=== PATIENT | male | born 1985 | race Caucasian/White ===

== ENCOUNTER 2020-07-07 10:37 | Emergency (ER) | payer MEDICAID ==
[2020-07-07 10:51] VITALS: BP 146/77; PULSE 77; RESP 18; TEMP 98
--- NOTE | 2020-07-07 11:22 | XR ---
EXAMINATION TYPE: XR shoulder complete RT DATE OF EXAM: 07/07/2020 COMPARISON: NONE HISTORY: Pain TECHNIQUE: Three views are submitted. FINDINGS: The osseous structures are intact. There is no acute fracture or dislocation. The AC joint is maint ained. IMPRESSION: 1. No acute process.
--- NOTE | 2020-07-07 11:32 | ED ---
Upper Extremity HPI - General Chief Complaint: Extremity Injury, Upper Stated Complaint: Hockey Injury/shoulder pain Time Seen by Provider: 07/07/20 10:52 Source: patient, RN notes reviewed Mode of arrival: ambulatory Limitations: no limitations - History of Present Illness Initial Comments: This a 35-year-old male presents emergency Department chief complaint right shoulder pain. 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 Patient has pain today. This happened last night states it hurts to move his right shoulder no other complaints. No shortness of breath. - Related Data Home Medications Medication Instructions Recorded Confirmed Ergocalciferol [Vitamin D2 (1250 1,250 mcg PO ALFREDO 07/07/20 07/07/20 Mcg = 46653 Iu)] Allergies Allergy/AdvReac Type Severity Reaction Status Date / Time No Known Allergies Allergy Verified 07/07/20 11:20 Review of Systems ROS Statement: Those systems with pertinent positive or pertinent negative responses have been documented in the HPI. ROS Other: All systems not noted in ROS Statement are negative. Past Medical History Past Medical History: Asthma Additional Past Medical History / Comment(s): heart murmur, hypotension History of Any Multi-Drug Resistant Organisms: None Reported Past Surgical History: Orthopedic Surgery Additional Past Surgical History / Comment(s): left arm, "pop elbow back in" Past Anesthesia/Blood Transfusion Reactions: No Reported Reaction Past Psychological History: No Psychological Hx Reported Smoking Status: Never smoker Past Alcohol Use History: Occasional Past Drug Use History: Marijuana General Exam Limitations: no limitations General appearance: alert, in no apparent distress Head exam: Present: atraumatic, normocephalic, normal inspection Eye exam: Present: normal appearance, PERRL, EOMI. Absent: scleral icterus, conjunctival injection, periorbital swelling Neck exam: Present: normal inspection, full ROM. Absent: tenderness, mening ismus, lymphadenopathy Respiratory exam: Present: normal lung sounds bilaterally. Absent: respiratory distress, wheezes, rales, rhonchi, stridor Cardiovascular Exam: Present: regular rate, normal rhythm, normal heart sounds. Absent: systolic murmur, diastolic murmur, rubs, gallop, clicks Extremities exam: Present: other (Right shoulder mild tightness, ecchymosis noted) Course Vital Signs 07/07/20 10:47 Temperature 98 F Pulse Rate 77 Respiratory 18 Rate Blood Pressure 146/77 O2 Sat by Pulse 100 Oximetry Medical Decision Making - Medical Decision Making X-ray was reviewed patient has a no acute fracture. Right shoulder contusion discharged stable condition. Disposition Clinical Impression: Contusion of right shoulder Disposition: HOME SELF-CARE Condition: Stable Instructions (If sedation given, give patient instructions): Contusion in Adults (ED) Additional Instructions: Please return to the Emergency Department if symptoms worsen or any other concerns. Is patient prescribed a controlled substance at d/c from ED?: No Referrals: Jarvis Lyons MD [Primary Care Provider] - 1-2 days Time of Disposition: 11:32
== END 2020-07-07 11:48 | disposition home or self-care (01) ==
LOC: EC 10:37
DX: S40.011A Contusion of right shoulder, initial encounter (principal); W22.8XXA Striking against or struck by other objects, initial encounter; J45.909 Unspecified asthma, uncomplicated; F12.90 Cannabis use, unspecified, uncomplicated
CPT/HCPCS: 99283

== ENCOUNTER → 2020-11-10 | Outpatient (CLI) | payer MEDICAID ==
--- NOTE | 2020-11-10 15:45 | US ---
EXAMINATION TYPE: US kidneys/renal and bladder DATE OF EXAM: 11/10/2020 COMPARISON: CT abdomen and pelvis November 26, 2013 CLINICAL HISTORY: R39.15 Urgency of Urination, N50.812 Left Testicle. patient was hit by hockey puck in pelvis and has increased urinary frequency EXAM MEASUREMENTS: Right Kidney: 12.3 x 4.8 x 6.0 cm Left Kidney: 10.8 x 4.4 x 4.9 cm Right Kidney: No hydronephrosis or masses seen Left Kidney: No hydronephrosis or masses seen Bladder: wnl Bilateral Jets seen: yes There is no evidence for hydronephrosis at this point in time. No nephrolithiasis is seen. No marybeth s are identified. The urinary bladder is satisfactorily distended. Bilateral ureteral jets are seen . IMPRESSION: Unremarkable study.
--- NOTE | 2020-11-10 15:48 | US ---
EXAMINATION TYPE: US scrotum with doppler. Grayscale and color Doppler Duplex imaging performed of t elaine scrotum. DATE OF EXAM: 11/10/2020 COMPARISON: NONE CLINICAL HISTORY: R39.15 Urgency of Urination, N50.812 Left Testicle. h/o hernia repair in right ingu inal canal as a child and after recent injury with hockey puck hitting pelvis, reassess hernia and te sticles. EXAM MEASUREMENTS: TESTICLES: Right Testicle: 5.5 x 3.7 x 2.5 cm Left Testicle: 4.8 x 3.7 x 2.6 cm EPIDIDYMIS HEAD: Right Epididymis: 1.2 cm Left Epididymis: 1.2 cm Doppler performed to assess for testicular vascularity; good bilateral color flow and waveforms are s een. . Presence of hydroceles: no, mild medial fluid seen Presence of varicoceles: no rt inguinal canal scan produced no evidence of hernia with and without valsalva. Satisfactory blood flow to both testicles. Comparison view shows symmetric flow bilaterally. IMPRESSION: No concerning significant scrotal fluid collection or hematoma. Symmetric blood flow to b oth testicles confirmed.
== END | disposition home or self-care (01) ==
LOC: RADUSWWP 15:00
PROVIDERS: ATTEND Family Medicine
DX: R39.15 Urgency of urination (principal); N50.812 Left testicular pain; S39.94XA Unspecified injury of external genitals, initial encounter
CPT/HCPCS: 76770; 76870; 93975

== ENCOUNTER 2024-01-01 21:51 | Emergency (ER) | payer BC, MEDICAID ==
[2024-01-01 21:54] VITALS: TEMP 98.3
[2024-01-01] MEDS: KETOROLAC 15 MG/ML 1 ML VIAL IM STA (22:17)
--- NOTE | 2024-01-01 23:53 | ED ---
General Adult HPI - General Chief complaint: Extremity Injury, Upper Stated complaint: L Collar Bone Injury Time Seen by Provider: 01/01/24 21:56 Source: patient Mode of arrival: ambulatory Limitations: no limitations - History of Present Illness Initial comments: 38-year-old male presenting with chief complaint of pain to the left collarbone. Patient was playing hockey when a hockey puck hit him in the collarbone. He has some bruising and swelling over the area. He has pain with movement of the left arm. No difficulty breathing. - Related Data Home Medications Medication Instructions Recorded Confirmed Ergocalciferol [Vitamin D2 (1250 1,250 mcg PO ALFREDO 07/07/20 07/07/20 Mcg = 18886 Iu)] Allergies Allergy/AdvReac Type Severity Reaction Status Date / Time No Known Allergies Allergy Verified 01/01/24 21:54 Review of Systems ROS Statement: Those systems with pertinent positive or pertinent negative responses have been documented in the HPI. ROS Other: All systems not noted in ROS Statement are negative. Past Medical History Past Medical History: Asthma Additional Past Medical History / Comment(s): heart murmur, hypotension History of Any Multi-Drug Resistant Organisms: None Reported Past Surgical History: Orthopedic Surgery Additional Past Surgical History / Comment(s): left arm, "pop elbow back in" Past Anesthesia/Blood Transfusion Reactions: No Reported Reaction Past Psychological History: No Psychological Hx Reported Smoking Status: Never smoker Past Alcohol Use History: Occasional Past Drug Use History: Marijuana General Exam Limitations: no limitations General appearance: alert, in no apparent distress Head exam: Present: atraumatic, normocephalic Eye exam: Present: normal appearance, EOMI Neck exam: Present: normal inspection. Absent: meningismus Respiratory exam: Present: normal lung sounds bilaterally. Absent: respiratory distress, wheezes, rales, rhonchi, stridor Cardiovascular Exam: Present: regular rate, normal rhythm, normal heart sounds. Absent: systolic murmur, diastolic murmur, rubs, gallop, clicks Neurological exam: Present: alert, oriented X3 Psychiatric exam: Present: normal affect, normal mood Skin exam: Present: warm, dry Course Vital Signs 01/01/24 01/02/24 21:52 00:12 Temperature 98.3 F Pulse Rate 92 68 Respiratory 16 18 Rate Blood Pressure 123/76 121/71 O2 Sat by Pulse 99 98 Oximetry Medical Decision Making - Medical Decision Making Was pt. sent in by a medical professional or institution (, [facility], [employer], urgent care, hospital, or skilled nursing...) When possible be specific @ -No Did you speak to anyone other than the patient for history (EMS, parent, family, police, friend...)? What history was obtained from this source @ -No Did you review nursing and triage notes (agree or disagree)? Why? @ -I reviewed and agree with nursing and triage notes Were old charts reviewed (outside hosp., previous admission, EMS record, old EKG, old radiological studies, urgent care reports/EKG's, skilled nursing records)? Report findings @ -No old charts were reviewed Differential Diagnosis (chest pain, altered mental status, abdominal pain women, abdominal pain men, vaginal bleeding, weakness, fever, dyspnea, syncope, headache, dizziness, GI bleed, back pain, seizure, CVA, palpatations, mental health, musculoskeletal)? @ -Differential Musculoskeletal Muscular strain, contusion, ligament sprain, fracture, arthritis, septic arthritis, bursitis, cellulitis, muscle spasm, nerve compression, DVT, arterial occlusion, herpes zoster, electrolyte abnormality, tumor.... This is not meant to be in all inclusive list EKG interpreted by me (3pts min.). @ -As above X-rays interpreted by me (1pt min.). @ -X-rays negative for fracture CT interpreted by me (1pt min.). @ -None done U/S interpreted by me (1pt. min.). @ -None done What testing was considered but not performed or refused? (CT, X-rays, U/S, labs)? Why? @ -None What meds were considered but not given or refused? Why? @ -None Did you discuss the management of the patient with other professionals (professionals i.e. , [facility], [facility] [employer] [facility], lab, RT, psych nurse, professor of social work, pipe fitter fire sprinkler systems, teacher, business development officer, caser in)? Give summary @ -No Was smoking cessation discussed for >3mins.? @ -No Was critical care preformed (if so, how long)? @ -No Were there social determinants of health that impacted care today? How? (Homelessness, low income, unemployed, alcoholism, drug addiction, transportation, low edu. Level, literacy, decrease access to med. care, nursing home, rehab)? @ -No Was there de-escalation of care discussed even if they declined (Discuss DNR or withdrawal of care, Hospice)? DNR status @ -No What co-morbidities impacted this encounter? (DM, HTN, Smoking, COPD, CAD, Cancer, CVA, ARF, Chemo, Hep., AIDS, mental health diagnosis, sleep apnea, morbid obesity)? @ -None Was patient admitted / discharged? Hospital course, mention meds given and route, prescriptions, significant lab abnormalities, going to OR and other pertinent info. @ -38-year-old male presenting for evaluation after being hit with a hockey puck in the left clavicle. X-ray negative for fracture. Patient is educated on today's findings and supportive management at home. Provided with a sling for comfort. Discharged. Follow-up with PCP. Report back to ER with any new or worsening symptoms. Discussed return parameters and answered all questions. Patient conveyed verbal understanding and agreed to the plan. I discussed this case in detail with my attending Dr. Garcia Undiagnosed new problem with uncertain prognosis? @ -No Drug Therapy requiring intensive monitoring for toxicity (Heparin, Nitro, Insulin, Cardizem)? @ -No Were any procedures done? @ -No Diagnosis/symptom? @ -Clavicle injury Acute, or Chronic, or Acute on Chronic? @ -Acute Uncomplicated (without systemic symptoms) or Complicated (systemic symptoms)? @ -Uncomplicated Side effects of treatment? @ -No Exacerbation, Progression, or Severe Exacerbation? @ -No Poses a threat to life or bodily function? How? (Chest pain, [place], [place], pneumonia, PE, COPD, DKA, ARF, appy, cholecystitis, CVA, Diverticulitis, Homicidal, Suicidal, threat to staff... and all critical care pts) @ -No Disposition Clinical Impression: Injury of clavicle Disposition: HOME SELF-CARE Condition: Good Instructions (If sedation given, give patient instructions): Clavicle Fracture (ED) Additional Instructions: Follow-up with PCP. Report back to ER with any new or worsening symptoms. Take Motrin and Tylenol as needed for pain control. Rest and ice the area. Is patient prescribed a controlled substance at d/c from ED?: No Referrals: Jarvis Lyons MD [Primary Care Provider] - 1-2 days Time of Disposition: 23:53
[2024-01-02 00:14] VITALS: BP 121/71; PULSE 68; RESP 18
--- NOTE | 2024-01-02 00:47 | XR ---
EXAM: XR Left Clavicle Complete, 2 or More Views CLINICAL HISTORY: ITS.REASON XR Reason: hit with hockey puck TECHNIQUE: Frontal and lordotic views of the left clavicle. COMPARISON: No relevant prior studies available. FINDINGS: Bones/joints: Unremarkable. No acute fracture. No dislocation. Soft tissues: Unremarkable. IMPRESSION: No acute fracture.
== END 2024-01-02 00:14 | disposition home or self-care (01) ==
LOC: EC 21:51
CPT/HCPCS: 96372; 99283